=== PATIENT | male | born 1975 | race Caucasian/White ===

== ENCOUNTER 2017-03-07 10:22 | Emergency (ER) | payer OTHER ==
[~2017-03-07] VITALS: Ht 167.6 cm; Wt 87.7 kg
[~2017-03-07 10:22] MED LIST: ASPIRIN EC325 MG PO; IBUPROFEN800 MG PO; PRAVASTATIN SOD80 MG PO; TYLENOL REGULA325 MG PO; VITAMIN B12-FO1 EACH PO; ZOLOFT50 MG PO
[2017-03-07 11:21] LABS: HEMATOCRIT 46.5 % (38.0-50.0); HEMOGLOBIN 15.4 G/DL (12.5-16.6); MCH 26.6 PG (29.0-34.0); MCHC 33.1 G/DL (30.0-36.0); MCV 80.2 FL (86-99); PLATELET COUNT 295 K/uL (156-360); RBC DIS.WIDTH-CV 12.3 % (11.8-14.6); RBC DIS.WIDTH-SD 35.4 % (39-53); WHITE BLOOD COUNT 8.2 K/uL (4.1-10.2)
[2017-03-07 11:32] LABS: ALBUMIN 4.2 g/dL (3.2-4.8)
[2017-03-07 11:33] LABS: CHLORIDE 104 mEq/L (99-109); POTASSIUM 3.7 mEq/L (3.7-5.4); SODIUM 137 mEq/L (136-147)
[2017-03-07 11:35] LABS: GLUCOSE 118 mg/dL (70-99); TOTAL PROTEIN 7.2 g/dL (6.4-8.3)
[2017-03-07 11:37] LABS: TOTAL BILIRUBIN 0.5 mg/dL (0.0-1.0)
[2017-03-07 11:38] LABS: ALKALINE PHOSPHATASE 52 IU/L (3-129)
[2017-03-07 11:39] LABS: CREATININE 1.3 mg/dL (0.6-1.3); GFR ESTIMATE (CALCULATED) > 59 mL/min/ (58.99-99999)
[2017-03-07 11:40] LABS: AST (GOT) 24 IU/L (2-34); UREA NITROGEN (BUN) 6 mg/dL (9-23)
[2017-03-07 11:42] LABS: ALT (GPT) 15 IU/L (3-49)
[2017-03-07 11:44] LABS: TROP-I INTERPRETATION NEGATIVE; TROPONIN-I < 0.01 ng/mL (0.0-0.30)
[2017-03-07 11:50] LABS: Estimated Average Glucose 108 mg/dL (70-123); HEMOGLOBIN A1c (GLYCOHEMOGLOB) 5.4 % HGB (Below 5.7)
[2017-03-07 12:30] LABS: HDL CHOLESTEROL 35 MG/DL (Desirable>=40); LDL CHOLESTEROL 121 mg/dL (Desirable<100); NON-HDL CHOLESTEROL 177 mg/dL (Desirable<160); TOTAL CHOLESTEROL 212 mg/dL (Desirable<200); TRIGLYCERIDES 281 MG/DL (Normal: <150)
[2017-03-07] MEDS ORDERED: PREDNISONE20 MG PO (12:50)
[2017-03-07 13:08] VITALS: BP 122/82
== END 2017-03-07 13:09 | disposition home or self-care (01) ==
LOC: EME 10:22
PROVIDERS: Nurse Practitioner Family
DX: G51.0 Bell's palsy (principal); I10 Essential (primary) hypertension; J44.9 Chronic obstructive pulmonary disease, unspecified; F31.9 Bipolar disorder, unspecified; H54.62 Unqualified visual loss, left eye, normal vision right eye; Z86.73 Personal history of transient ischemic attack (TIA), and cerebral infarction without residual deficits; Z87.891 Personal history of nicotine dependence
CPT/HCPCS: 70450; 71020; 80053; 80061; 83036; 84484; 85027; 93005; 99281; 99285